=== PATIENT | male | born 1930 | race Two or more races ===

== ENCOUNTER → 2016-07-08 | Outpatient (CLI) | payer OTHER ==
[2016-02-11 11:00] VITALS: BP 102/59
[~2016-07-08] MED LIST: ACET500T68 PO; ASPI-482 PO; ATOR10TA60 PO; CETI10TA30 PO; IBUP-1007 PO; LISI-338 PO; MECL-51 PO; METF500T4 PO; WARF5TAB PO
--- NOTE | 2016-07-08 16:40 | RAD ---
Indication renal cyst. Grayscale imaging targeted to the kidneys was performed. Note is made of a similar examination 02/05/2016. Note is made of a CT examination of the chest 02/08/2016. The right kidney measures 11.2 x 5 x 5.4 cm. Again seen is a 1.6 cm echogenic mass not changed substantially relative to the previous exam. Continued ultrasound follow-up advised. The left kidney measures 11.6 x 5 x 5.8 cm. Known cyst associated with the left kidney measuring approximately 9.2 cm in greatest dimension is reproduced. IMPRESSION: Known left renal cyst is reproduced. Mass in the right kidney is similar to minimally larger by 1 to 2 mm relative to the previous exam
== END | disposition home or self-care (01) ==
LOC: US 15:53
PROVIDERS: ATTEND Internal Medicine
DX: N28.1 Cyst of kidney, acquired (principal)
CPT/HCPCS: 76770

== ENCOUNTER → 2016-09-23 | Outpatient (CLI) | payer OTHER ==
[2016-02-11 11:00] VITALS: BP 102/59
[~2016-09-23] MED LIST changes: +WARF-78 PO; -WARF5TAB PO
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
== END | disposition home or self-care (01) ==
LOC: RAD 08:42
PROVIDERS: ATTEND Internal Medicine
DX: S33.5XXA Sprain of ligaments of lumbar spine, initial encounter (principal); M47.896 Other spondylosis, lumbar region; M54.2 Cervicalgia; V49.9XXA Car occupant (driver) (passenger) injured in unspecified traffic accident, initial encounter; Y93.89 Activity, other specified; Y92.89 Other specified places as the place of occurrence of the external cause; Y99.8 Other external cause status
CPT/HCPCS: 72050; 72100